=== PATIENT | female | born 1970 | race Caucasian/White ===

== ENCOUNTER 2018-03-20 19:48 | Emergency (ER) | payer SELFPAY ==
[~2018-03-20] VITALS: Ht 167.6 cm; Wt 55.8 kg
[2018-03-20] MEDS ORDERED: IV NORMAL SALINE 1,000ML 1,000 ML IV ONE (20:00)
--- NOTE | 2018-03-20 20:05 | EKG ---
[address] [address] Test Date: 2018-03-20 Test Time: 19:59:46 Pat Name: MICHELLE NAVARRETE Department: Room: Gender: F Licensed Land Surveyor: : 1970 Requested By: SARAH PEREZ Order Number: [id number] Reading MD: Yared Morton MD Measurements Intervals [place] Rate: 117 P: 75 MI: 170 QRS: 74 QRSD: 78 T: 90 QT: 314 QTc: 442 Interpretive Statements SINUS TACHYCARDIA PROBABLE ANTEROSEPTAL INFARCT Electronically Signed On 03-22-2018 9:55:23 CDT by Yared Morton MD
--- NOTE | 2018-03-20 20:34 | PHYS DOC ---
Past History Past Medical History: Bipolar, Depression, Other Past Surgical History: No Surgical History Alcohol Use: Heavy Drug Use: Heroin, Methamphetamine Adult General Chief Complaint Chief Complaint: ACCIDENTAL INGESTION HPI HPI Patient is a 47-year-old female presenting to the ED due to ingestion of crystal meth. The patient reportedly ingested 1 g of crystal meth in attempt to evade police, according to the officer who accompanied the patient. The patient ingested the drug at approximately @1912 tonight. The patient also reports having drunk 3 pints of whiskey. The patient complains of throat pain and nausea. Patient reports that she has never used intravenous drugs. LMP was 3 months ago according to the patient. Review of Systems Review of Systems Constitutional: Denies fever or chills [] Eyes: Denies change in visual acuity, redness, or eye pain [] HENT: Denies nasal congestion, reports sore throat Respiratory: Denies cough or shortness of breath [] Cardiovascular: Denies chest pain GI: Denies abdominal pain, nausea, vomiting, : Denies dysuria or hematuria [] Musculoskeletal: Denies back pain or joint pain [] Integument: Denies rash or skin lesions [] Neurologic: Denies headache, focal weakness or sensory changes [] Endocrine: Denies polyuria or polydipsia [] Complete systems were reviewed and found to be within normal limits, except as documented in this note. Current Medications Current Medications Current Medications Medications (Trade) Dose Ordered Sig/Juany Start Time Stop Time Status Last Admin Dose Admin Sodium Chloride 1,000 ml @ 1,000 mls/hr 1X ONCE 03/20/18 20:00 03/20/18 20:59 03/20/18 20:00 1,000 MLS/HR Allergies Allergies Allergies Coded Allergies Type Severity Reaction Last Updated Verified codeine Allergy Intermediate 03/20/18 Yes Physical Exam Physical Exam Constitutional: Appears older than stated age, mild distress HENT: Normocephalic, atraumatic Eyes: PERRL, EOMI, conjunctiva normal, no discharge. [] Neck: Normal range of motion, no tenderness, supple, no stridor. [] Cardiovascular: Heart rate regular rhythm, no murmur [] Lungs & Thorax: Bilateral breath sounds clear to auscultation [] Abdomen: Soft, no tenderness Skin: Warm, dry, no erythema, no rash. [] Back: No tenderness, no CVA tenderness. [] Extremities: No tenderness, ROM intact, no edema. [] Neurologic: Alert and oriented X 3, normal motor function, normal sensory function, no focal deficits noted. [] Psychologic: Labile affect Current Patient Data Vital Signs Vital Signs Date Time Temp Pulse Resp B/P (MAP) Pulse Ox O2 Delivery O2 Flow Rate FiO2 03/20/18 19:57 99.0 120 18 97 Room Air EKG EKG @1959: Sinus tachycardia at 117bpm, NO ST elevation Radiology/Procedures Radiology/Procedures [] Course & Med Decision Making Course & Med Decision Making 47-year-old female brought to the ED due to ingestion of crystal meth by mouth in attempt to evade police. Patient was monitored closely. Patient protecting airway. Poison control was contacted and recommend supportive care and monitoring. UDS was obtained and found to be positive for alcohol and methamphetamines. Per recommendation by poison control, patient was monitored for 4 hours, looking for signs of overdose. Patient had an unremarkable course of stay in the ED, and her agitation, labile affect, and hypertension improved after her 4 hour stay. The patient did not require any benzodiazepines. Patient stable for discharge under police custody to correction with future outpatient follow-up with PCP. Discussed findings and plan with patient, who acknowledges understanding and agreement. Dragon Disclaimer Dragon Disclaimer This electronic medical record was generated, in whole or in part, using a voice recognition dictation system. Departure Departure: Impression: Primary Impression: Ingestion of unknown drug Additional Impression: Methamphetamine abuse Disposition: 05 XFER OTHER ([facility] in police custody) Condition: STABLE Patient Instructions: Drug or Toxin Ingestion, Child, Methamphetamine Abuse, Complications Problem Qualifiers Primary Impression: Ingestion of unknown drug Encounter type: initial encounter Injury intent: undetermined intent Qualified Codes: T50.904A - Poisoning by unspecified drugs, medicaments and biological substances, undetermined, initial encounter SARAH PEREZ DO Mar 20, 2018 20:34
[2018-03-20 20:35] LABS: BASO # 0.1 x10^3/uL (0.0-0.2); BASO % 1 % (0-3); EOS # 0.1 x10^3/uL (0.0-0.7); EOS % 2 % (0-3); HEMATOCRIT 37.3 % (36.0-47.0); HEMOGLOBIN 12.1 g/dL (12.0-15.5); LYMPH # 1.6 x10^3/uL (1.0-4.8); LYMPH % 30 % (24-48); MEAN CORPUSCULAR HEMOGLOBIN 29 pg (25-35); MEAN CORPUSCULAR HGB CONC 33 g/dL (31-37); MEAN CORPUSCULAR VOLUME 88 fL (79-100); MONO # 0.3 x10^3/uL (0.0-1.1); MONO % 7 % (0-9); NEUT # 3.3 x10^3uL (1.8-7.7); NEUT % 61 % (31-73); PLATELET COUNT 270 x10^3/uL (140-400); RED BLOOD COUNT 4.25 x10^6/uL (3.50-5.40); RED CELL DISTRIBUTION WIDTH 16.2 % (11.5-14.5); WHITE BLOOD COUNT 5.3 x10^3/uL (4.0-11.0)
[2018-03-20 20:46] LABS: ALBUMIN 3.5 g/dL (3.4-5.0); ALBUMIN/GLOBULIN RATIO 1.1 (1.0-1.7); ALK PHOS 78 U/L (46-116); ALT (SGPT) 23 U/L (14-59); ANION GAP 14 (6-14); AST (SGOT) 17 U/L (15-37); BLOOD UREA NITROGEN 18 mg/dL (7-20); BUN/CREATININE RATIO 18 (6-20); CALCIUM 8.8 mg/dL (8.5-10.1); CARBON DIOXIDE 24 mmol/L (21-32); CHLORIDE 104 mmol/L (98-107); GFR 58.9; GLUCOSE 96 mg/dL (70-99); MAGNESIUM 2.1 mg/dL (1.8-2.4); POTASSIUM 3.6 mmol/L (3.5-5.1); SODIUM 142 mmol/L (136-145); TOTAL PROTEIN 6.6 g/dL (6.4-8.2)
[2018-03-20 20:49] LABS: ACETAMIN < 2.0 mcg/mL (10-30); ETHANOL 53 mg/dL (0-10)
[2018-03-20 20:51] LABS: AMPHETAMINE/METHAMPHETAMINE POS (NEG); BARBITURATES NEG (NEG); BENZODIAZEPINES NEG (NEG); CANNABINOIDS NEG (NEG); COCAINE NEG (NEG); METHADONE NEG (NEG); OPIATES NEG (NEG); PHENCYCLIDINE NEG (NEG)
[2018-03-20 21:09] LABS: BILIRUBIN,URINE NEG (NEG); CLARITY,URINE CLEAR; COLOR,URINE YELLOW; GLUCOSE,URINE NEG (NEG)
[2018-03-20 21:10] LABS: BACTERIA,URINE FEW /HPF (0-FEW); NITRITE,URINE NEG (NEG); RBC,URINE RARE /HPF (0-2); SQUAMOUS EPITHELIAL CELL,UR MOD /LPF; UROBILINOGEN,URINE 0.2 mg/dL (0.2 mg/dL)
[2018-03-20 21:31] LABS: TOTAL BILIRUBIN < 0.1 mg/dL (0.2-1.0)
[2018-03-20] MEDS ORDERED: KETOROLAC 15 MG/ML VIAL. ONE (23:28)
[2018-03-20 23:30] VITALS: BP 128/85
[2018-03-20] MEDS ORDERED: KETOROLAC 15 MG/ML VIAL. IV ONE (23:45)
== END 2018-03-20 23:28 | disposition home or self-care (01) ==
LOC: ER 19:48
DX: R07.0 Pain in throat (principal); R11.0 Nausea; T43.625A Adverse effect of amphetamines, initial encounter; F15.10 Other stimulant abuse, uncomplicated; F31.9 Bipolar disorder, unspecified; F11.10 Opioid abuse, uncomplicated; F10.20 Alcohol dependence, uncomplicated; Z88.5 Allergy status to narcotic agent; Y90.3 Blood alcohol level of 60-79 mg/100 ml; Y92.89 Other specified places as the place of occurrence of the external cause
CPT/HCPCS: 36415; 80053; 80307; 81001; 82550; 83735; 85025; 85610; 85730; 87086; 93005; 96374; 99285; G0480; G6039; J1885; 82003; G0479; J7030